=== PATIENT | female | born 1980 | race Two or more races ===

== ENCOUNTER → 2021-06-13 | Day surgery (SDC) | payer OTHER ==
[~2021-06-13] VITALS: Ht 157.5 cm; Wt 77.1 kg
[~2021-06-13] MED LIST: ACETAMINOPHEN500 M1 PO; COLACE100 MG PO; DAILY VALUE1 EACH PO; MOTRIN600 MG PO; OXY-IR 5MG5 MG PO; YASMIN 28 TABL1 EACH PO
[2021-06-13 08:31] LABS: HCG (URINE) SCREEN NEGATIVE (NEGATIVE)
== END | disposition home or self-care (01) ==
LOC: FAS 08:03
PROVIDERS: Anesthesiology
DX: K80.10 Calculus of gallbladder with chronic cholecystitis without obstruction (principal); Z91.040 Latex allergy status
CPT/HCPCS: 84703; J1100; J1170; J1644; J2001; J2250; J2405; J2704; J2710; J3010; J7120